=== PATIENT | male | born 1955 | race Caucasian/White ===

== ENCOUNTER 2024-10-22 08:20 | Day surgery (SDC) | payer MEDICARE ==
[~2024-10-22 08:20] MED LIST: Sodium Chloride 0.9% 10 ML Syringe FLUSH PRN; Sodium Chloride 0.9% 10 ML Syringe FLUSH SCH
[2024-10-22] MEDS ORDERED: Propofol 200 MG/20 ML SDV ONE ×3 (09:06→10:05)
[2024-10-22] MEDS: Lactated Ringers 1,000 ML IV SCH (09:10)
== END 2024-10-22 11:01 | disposition home or self-care (01) ==
LOC: JD.SDS 08:20
PROVIDERS: ATTEND Surgery
DX: D12.4 Benign neoplasm of descending colon (principal); D12.8 Benign neoplasm of rectum; D12.9 Benign neoplasm of anus and anal canal; K57.30 Diverticulosis of large intestine without perforation or abscess without bleeding; K64.4 Residual hemorrhoidal skin tags; I48.91 Unspecified atrial fibrillation; I12.9 Hypertensive chronic kidney disease with stage 1 through stage 4 chronic kidney disease, or unspecified chronic kidney disease; N18.30 Chronic kidney disease, stage 3 unspecified; E78.5 Hyperlipidemia, unspecified; K40.90 Unilateral inguinal hernia, without obstruction or gangrene, not specified as recurrent; Z79.01 Long term (current) use of anticoagulants; Z79.899 Other long term (current) drug therapy
CPT/HCPCS: 45385; J2704; J7120; 00811; 99100

== ENCOUNTER 2024-12-10 07:33 | Day surgery (SDC) | payer MEDICARE ==
[~2024-12-10 07:33] MED LIST changes: +Lidocaine 1% 4 ML ONE; +Midazolam 1 MG/ML 2 ML SDV ONE; +Ondansetron 4 MG/2 ML SDV ONE; +Propofol 200 MG/20 ML SDV ONE; +ceFAZolin 2 GM Vial ONE; +fentaNYL 100 MCG/2 ML SDV ONE
[2024-12-10] MEDS: Lactated Ringers 1,000 ML IV SCH (08:05)
[2024-12-10] MEDS ORDERED: HYDROmorphone 0.5 MG/0.5 ML Syringe IVPUSH PRN (08:42)
[2024-12-10] MEDS ORDERED: fentaNYL 100 MCG/2 ML SDV IVPUSH PRN (08:42)
[2024-12-10] MEDS ORDERED: Ondansetron 4 MG/2 ML SDV IVPUSH PRN (08:42)
[2024-12-10] MEDS ORDERED: Ondansetron 4 MG/2 ML SDV ONE (09:30)
[2024-12-10] MEDS ORDERED: ePHEDrine 50 MG/ML SDV ONE (09:41)
[2024-12-10] MEDS ORDERED: Glycopyrrolate 0.2 MG/ML 2 ML SDV ONE (09:51)
[2024-12-10] MEDS: Bupivacaine 0.5% 30 ML SDV ONE (11:36)
[2024-12-10] MEDS: EPINEPHrine 1 MG/ML SDV ONE (11:36)
[2024-12-10] MEDS: oxyCODONE 5 MG Tab PO PRN (13:40)
== END 2024-12-10 13:40 | disposition home or self-care (01) ==
LOC: JD.SDS 07:33
PROVIDERS: ATTEND Surgery
DX: K40.90 Unilateral inguinal hernia, without obstruction or gangrene, not specified as recurrent (principal); N18.30 Chronic kidney disease, stage 3 unspecified; I48.91 Unspecified atrial fibrillation; Z79.01 Long term (current) use of anticoagulants; Z79.899 Other long term (current) drug therapy
CPT/HCPCS: A9270-GY; J0171; J0665; J0690; J2250; J2405; J2704; J3010; J3490; J7120

== ENCOUNTER 2025-09-23 08:49 | Day surgery (SDC) | payer MEDICARE ==
[~2025-09-23 08:49] MED LIST changes: +Dexamethasone 4 MG/ML 5 ML MDV ONE; +Ketamine HCL/NACL, ISO-OSM 50 MG/5 ML Syringe ONE; -Lidocaine 1% 4 ML ONE; -Midazolam 1 MG/ML 2 ML SDV ONE; +Phenylephrine 1% 10 MG/ML SDV ONE; -ceFAZolin 2 GM Vial ONE; +dexmedeTOMIDine HCl 200 MCG/2 ML SDV ONE; -fentaNYL 100 MCG/2 ML SDV ONE; +fentaNYL 250 MCG/5 ML SDV ONE
[2025-09-23] MEDS ORDERED: propofoL 500 MG/50 ML 50 ML ONE ×2 (09:45→11:41)
[2025-09-23] MEDS ORDERED: fentaNYL 250 MCG/5 ML SDV ONE ×2 (09:46→11:47)
[2025-09-23] MEDS ORDERED: Propofol 200 MG/20 ML SDV ONE ×3 (09:48→12:50)
[2025-09-23] MEDS ORDERED: Ondansetron 4 MG/2 ML SDV ONE (09:50)
[2025-09-23] MEDS ORDERED: Ketorolac 30 MG/ML SDV ONE (09:50)
[2025-09-23] MEDS ORDERED: Dexamethasone 4 MG/ML 5 ML MDV ONE (09:50)
[2025-09-23] MEDS ORDERED: dexmedeTOMIDine HCl 200 MCG/2 ML SDV ONE (09:51)
[2025-09-23] MEDS: Lactated Ringers 1,000 ML IV SCH (10:15)
[2025-09-23] MEDS ORDERED: Lactated Ringers 1,000 ML ONE (11:23)
[2025-09-23] MEDS ORDERED: Labetalol 100 MG/20 ML MDV ONE (11:40)
[2025-09-23] MEDS: EPINEPHrine 1 MG/ML SDV ONE (12:32)
[2025-09-23] MEDS ORDERED: fentaNYL 100 MCG/2 ML SDV IVPUSH PRN (14:31)
[2025-09-23] MEDS: Ondansetron 4 MG/2 ML SDV IVPUSH PRN (17:23)
== END 2025-09-23 17:35 | disposition home or self-care (01) ==
LOC: JD.SDS 08:49
PROVIDERS: ATTEND Surgery
DX: K40.21 Bilateral inguinal hernia, without obstruction or gangrene, recurrent (principal); D17.6 Benign lipomatous neoplasm of spermatic cord; I10 Essential (primary) hypertension; E78.5 Hyperlipidemia, unspecified; Z79.01 Long term (current) use of anticoagulants; Z98.890 Other specified postprocedural states; Z79.899 Other long term (current) drug therapy
CPT/HCPCS: 49651; 55559; 88304; C1781; J0169; J0665; J0690; J1100; J1885; J1920; J2405; J2704; J3010; J7120; 00860; 99100; J1171; J2371; J3490